=== PATIENT | male | born 1960 | race American Indian/Alaskan Native ===

== ENCOUNTER 2021-12-06 07:53 | Day surgery (SDC) | payer MEDICARE ==
[2021-12-06] MEDS ORDERED: HEPARIN/NS 5000 UNIT/500ML 1,000 ML IR ONE (08:22)
[2021-12-06] MEDS ORDERED: NITROGLYCERIN DRIP 50 MG/250 ML BOTTLE ONE (08:23)
[2021-12-06] MEDS: HEPARIN 10,000 UNITS/10 ML VIAL ONE ×2 (08:23→11:48)
[2021-12-06] MEDS: ceFAZolin/Water 2 GM/20 ML 2 GM/20 ML SYRINGE IV ONE ×2 (08:24→11:30)
[2021-12-06] MEDS: LIDOCAINE 2%/EPINEPHRINE 1:200,000 VIAL (20 ML) INFILTRATI ONE ×2 (08:24→11:37)
[2021-12-06 08:44] LABS: Basophils # (Auto) 0.1 K/mm3 (0.0-0.1); Basophils % (Auto) 1.1 % (0.0-1.8); Eosinophils # (Auto) 0.1 K/mm3 (0.0-0.4); Eosinophils % (Auto) 0.5 % (0.0-4.3); Hematocrit 25.4 % (35.5-45.6); Hemoglobin 8.3 gm/dl (11.8-15.2); Lymphocytes # (Auto) 2.9 K/mm3 (1.2-5.4); Lymphocytes % (Auto) 21.7 % (13.4-35.0); Mean Corpuscular HGB Conc 33 % (32-34); Mean Corpuscular Volume 82 fl (84-94); Monocytes # (Auto) 0.7 K/mm3 (0.0-0.8); Monocytes % (Auto) 5.2 % (0.0-7.3); Platelet Count 307 K/mm3 (140-440); Red Blood Count 3.08 M/mm3 (3.65-5.03); Red Cell Distribution Width 18.9 % (13.2-15.2)
[2021-12-06 08:53] LABS: INR 1.1 (0.87-1.13)
[2021-12-06 08:54] LABS: Partial Thromboplastin Time 32.7 Sec. (24.2-36.6)
[2021-12-06 09:07] LABS: Blood Urea Nitrogen 7 mg/dL (9-20); Calcium 8.7 mg/dL (8.4-10.2); Hemolysis Index 16
[2021-12-06 09:09] LABS: BUN/Creatinine Ratio 35
[2021-12-06] MEDS: SODIUM CHLORIDE 0.9% 500 ML 500 ML IV SCH ×2 (09:51→11:30)
[2021-12-06] MEDS ORDERED: MIDAZOLAM 2 MG/2 ML INJ ONE (11:26)
[2021-12-06] MEDS ORDERED: fentaNYL 100 MCG/2 ML INJ ONE (11:26)
--- NOTE | 2021-12-06 11:28 | Short Stay Summary ---
Short Stay Documentation Date of service: 12/06/21 Narrative H&P: 61-year-old male with stroke and multiple medical issues with contracture and chronic wound of the right lower extremity presents with critical limb ischemia of the right lower extremity. Patient had diagnostic noninvasive imaging performed previously which demonstrated severe right SFA stenosis. Risk, benefits, and alternatives discussed with family. Family and patient agree with revascularization. Alternatively, the other option would be amputation which the patient and family have declined. - History Principal diagnosis: Peripheral vascular disease with ulceration of the right lower extremity H&P: obtained from office - Allergies and Medications Current Medications: Allergies acetaminophen [From Percocet] Allergy (Verified 12/06/21 09:43) Unknown confusion oxycodone [From Percocet] Allergy (Verified 12/06/21 09:43) Unknown confusion Home Medications Medication Instructions Recorded Confirmed Last Taken Type Acetaminophen [Tylenol] 650 mg PO Q6HR PRN 12/06/21 12/06/21 12/05/21 History AtorvaSTATin [Lipitor] 20 mg PO QHS 12/06/21 12/06/21 12/05/21 History Baclofen 1 tab PO BID PRN 12/06/21 12/06/21 12/05/21 History Clopidogrel [Plavix] 75 mg PO QDAY 12/06/21 12/06/21 12/05/21 History Fluticasone [Flonase] 1 spray NS QDAY 12/06/21 12/06/21 12/05/21 History Folic Acid [Folvite] 1 mg PO QDAY 12/06/21 12/06/21 12/05/21 History HYDROcodone/APAP 7.5-325 [[place] 1 each PO Q8HR PRN 12/06/21 12/06/21 12/05/21 History 7.5/325] Insulin Aspart (Nf) [NovoLOG 0 units SQ AC 12/06/21 12/06/21 12/05/21 History Flexpen] Loratadine [Claritin] 10 mg PO DAILY 12/06/21 12/06/21 12/05/21 History Magnesium Oxide [Magnesium] 400 mg PO DAILY 12/06/21 12/06/21 12/05/21 History Metoprolol [Lopressor TAB] 50 mg PO BID 12/06/21 12/06/21 12/05/21 History Pantoprazole [Protonix] 40 mg PO QDAY 12/06/21 12/06/21 12/05/21 History cilostazoL [Pletal] 100 mg PO BID 12/06/21 12/06/21 12/05/21 History lisinopriL [Lisinopril] 10 mg PO DAILY 12/06/21 12/06/21 12/05/21 History megestroL [Megace] 400 mg PO BID 12/06/21 12/06/21 12/05/21 History Active Medications Sodium Chloride (Nacl 0.9% 500 Ml) 500 mls @ 50 mls/hr IV DIRECT MINISTERIO Last Admin: 12/06/21 09:51 Dose: 50 mls/hr - Physical exam General appearance: other (Nonverbal, contracted, no distress) Lungs: Normal air movement Gastrointestinal: normal Extremities: normal temperature, normal color, abnormal (Multiple dressings on the right foot for nonhealing wounds, nonpalpable pedal pulses) - Brief post op/procedure progress note Date of procedure: 12/06/21 Pre-op diagnosis: Atherosclerosis with ulceration of the right lower extremity Post-op diagnosis: same Procedure: 1. Ultrasound-guided access of the left common femoral artery. 2. Angiography of the left lower extremity. 3. Selection of the abdominal aorta with angiography. 4. Selection of the right external iliac artery, superficial femoral artery, and popliteal artery of the right lower extremity with angiography. 5. Fluoroscopic guided placement of a 6 mm spider embolic protection device in the right popliteal artery. 6. Atherectomy of the right distal superficial femoral artery with a Hawkone M device with angioplasty with a 5 mm x 150 mm iNPACT balloon 7. Fluoroscopic guided removal of the embolic protection device. 8. Closure of the left common femoral artery with 6 [place] Pro style Anesthesia: local Surgeon: AMARA WING Estimated blood loss: minimal Condition: stable - Hospital course Hospital course: Patient tolerated the procedure well. No immediate postprocedural complications. Kept for 2 hours without issue. Pressure dressing on left groin. Can remove pressure dressing tomorrow morning. Reloaded with Plavix. Continue Plavix and cilostazol twice daily. Try to prevent dehydration as much as possible. IV fluid provided. - Disposition Condition at discharge: Stable Disposition: 01 HOME / SELF CARE / HOMELESS Short Stay Discharge Plan Activity: advance as tolerated Weight Bearing Status: Weight Bear as Tolerated (Do not lift more than 10 pounds for 1 week) Diet: per dietitian instruction Wound: keep clean and dry (Remove pressure dressing tomorrow morning. Can remove clear Tegaderm dressing in 48 hours and replace daily with new Tegaderm dressing until healed. ) Follow up with: Je PHILLIP MD [Primary Care Provider] - 7 Days Prescriptions: DOXYCYCLINE Hyclate [Vibramycin CAP] 100 mg PO BID #20 capsule
[2021-12-06] MEDS ORDERED: SODIUM CHLORIDE 0.9% 500 ML 500 ML ONE (12:16)
[2021-12-06] MEDS ORDERED: CLOPIDOGREL 300 MG TAB ONE (12:24)
--- NOTE | 2021-12-06 13:55 | Short Stay Summary ---
Short Stay Documentation Date of service: 12/06/21 Narrative H&P: 61-year-old male with stroke and multiple medical issues with contracture and chronic wound of the right lower extremity presents with critical limb ischemia of the right lower extremity. Patient had diagnostic noninvasive imaging performed previously which demonstrated severe right SFA stenosis. Risk, benefits, and alternatives discussed with family. Family and patient agree with revascularization. Alternatively, the other option would be amputation which the patient and family have declined. - History Principal diagnosis: Peripheral vascular disease with ulceration of the right lower extremity H&P: obtained from office - Allergies and Medications Current Medications: Allergies acetaminophen [From Percocet] Allergy (Verified 12/06/21 09:43) Unknown confusion oxycodone [From Percocet] Allergy (Verified 12/06/21 09:43) Unknown confusion Home Medications Medication Instructions Recorded Confirmed Last Taken Type Acetaminophen [Tylenol] 650 mg PO Q6HR PRN 12/06/21 12/06/21 12/05/21 History AtorvaSTATin [Lipitor] 20 mg PO QHS 12/06/21 12/06/21 12/05/21 History Baclofen 1 tab PO BID PRN 12/06/21 12/06/21 12/05/21 History Clopidogrel [Plavix] 75 mg PO QDAY 12/06/21 12/06/21 12/05/21 History DOXYCYCLINE Hyclate [Vibramycin 100 mg PO BID #20 capsule 12/06/21 Unknown Rx CAP] Fluticasone [Flonase] 1 spray NS QDAY 12/06/21 12/06/21 12/05/21 History Folic Acid [Folvite] 1 mg PO QDAY 12/06/21 12/06/21 12/05/21 History HYDROcodone/APAP 7.5-325 [[place] 1 each PO Q8HR PRN 12/06/21 12/06/21 12/05/21 History 7.5/325] Insulin Aspart (Nf) [NovoLOG 0 units SQ AC 12/06/21 12/06/21 12/05/21 History Flexpen] Loratadine [Claritin] 10 mg PO DAILY 12/06/21 12/06/21 12/05/21 History Magnesium Oxide [Magnesium] 400 mg PO DAILY 12/06/21 12/06/21 12/05/21 History Metoprolol [Lopressor TAB] 50 mg PO BID 12/06/21 12/06/21 12/05/21 History Pantoprazole [Protonix] 40 mg PO QDAY 12/06/21 12/06/21 12/05/21 History cilostazoL [Pletal] 100 mg PO BID 12/06/21 12/06/21 12/05/21 History lisinopriL [Lisinopril] 10 mg PO DAILY 12/06/21 12/06/21 12/05/21 History megestroL [Megace] 400 mg PO BID 12/06/21 12/06/21 12/05/21 History Active Medications Sodium Chloride (Nacl 0.9% 500 Ml) 500 mls @ 50 mls/hr IV DIRECT MINISTERIO Last Admin: 12/06/21 11:30 Dose: 50 mls/hr - Physical exam General appearance: other (Nonverbal, contracted, no distress) Lungs: Normal air movement Heart: Regular rate Gastrointestinal: normal Extremities: normal temperature, normal color, abnormal (Multiple dressings on the right foot for nonhealing wounds, nonpalpable pedal pulses) - Brief post op/procedure progress note Date of procedure: 12/06/21 Pre-op diagnosis: Atherosclerosis with ulceration of the right lower extremity Post-op diagnosis: same Procedure: 1. Ultrasound-guided access of the left common femoral artery. 2. Angiography of the left lower extremity. 3. Selection of the abdominal aorta with angiography. 4. Selection of the right external iliac artery, superficial femoral artery, and popliteal artery of the right lower extremity with angiography. 5. Fluoroscopic guided placement of a 6 mm spider embolic protection device in the right popliteal artery. 6. Atherectomy of the right distal superficial femoral artery with a [place]one M device with angioplasty with a 5 mm x 150 mm iNPACT balloon 7. Fluoroscopic guided removal of the embolic protection device. 8. Closure of the left common femoral artery with 6 [place] Pro style Anesthesia: local Surgeon: AMARA WING Estimated blood loss: minimal Condition: stable - Hospital course Hospital course: Patient tolerated the procedure well. No immediate postprocedural c omplications. Kept for 2 hours without issue. Pressure dressing on left groin. Can remove pressure dressing tomorrow morning. Reloaded with Plavix. Continue Plavix and cilostazol twice daily. Try to prevent dehydration as much as possible. IV fluid provided. - Disposition Condition at discharge: Stable Disposition: HOME / SELF CARE / HOMELESS - Discharge Diagnoses (1) Stroke Status: Acute (2) Bilateral knee contractures Status: Acute (3) Contracture of joint of both hips Status: Acute (4) Atherosclerosis of right lower extremity with ulceration Status: Acute Short Stay Discharge Plan Activity: advance as tolerated Weight Bearing Status: Weight Bear as Tolerated (Do not lift more than 10 pounds for 1 week) Diet: per dietitian instruction Wound: keep clean and dry (Remove pressure dressing tomorrow morning. Can remove clear Tegaderm dressing in 48 hours and replace daily with new Tegaderm dressing until healed.) Additional Instructions: Take doxycycline for 10 days. Recommend probiotics per facility with antibiotics. Follow up with: Je PHILLIP MD [Primary Care Provider] - 7 Days Forms: Post Arteriogram Instruct Prescriptions: DOXYCYCLINE Hyclate [Vibramycin CAP] 100 mg PO BID #20 capsule
--- NOTE | 2021-12-06 14:06 | Operative Report ---
Operative Report Operative Report: EXAM: 1. Ultrasound-guided access of the left common femoral artery. 2. Angiography of the left lower extremity. 3. Selection of the abdominal aorta with angiography. 4. Selection of the right external iliac artery, superficial femoral artery, and popliteal artery of the right lower extremity with angiography. 5. Fluoroscopic guided placement of a 6 mm spider embolic protection device in the right popliteal artery. 6. Atherectomy of the right distal superficial femoral artery with a Hawkone M device with angioplasty with a 5 mm x 150 mm iNPACT balloon 7. Fluoroscopic guided removal of the embolic protection device. 8. Closure of the left common femoral artery with 6 [place] Pro style DATE: 12/06/2021 MILK TESTER: AMARA WING MD INDICATION: Peripheral vascular disease with atherosclerosis of the right lower extremity with nonhealing ulceration with limb threatening wounds for long duration. Given contractures, discussed with family options of endovascular revascularization versus amputation. Family elected for endovascular revascularization. Risk, benefits, and alternatives discussed. Family and patient wish for endovascular revascularization. MEDICATIONS: Please see nursing report for full details. DEVICES: 6 mm spider embolic protection device, Hawkone M device 5 mm x 150 mm iNPACT balloon CONTRAST: Please see cath report for full details. PROCEDURE: The risks, benefits, and alternatives were discussed with the patient; written informed consent was obtained. The patient was prepped and draped in a sterile fashion and both groins were prepped and draped in a sterile fashion. The left common femoral artery was assessed by ultrasound and determined to be patent. The area was anesthetized. A 21-gauge micropuncture needle was used to access the left common femoral artery under direct ultrasound guidance. 0.018 inch wire was passed into the artery. The needle was exchanged for a transitional dilator. Inner dilator and wire were removed. 0.035 inch wire was passed centrally into the aorta. The transitional dilator was exchanged for a 5 [place] sheath. Digital subtraction angiography was performed through the sheath demonstrating an appropriate puncture, above the bifurcation and below the inferior epigastric artery. The left external iliac artery, common femoral artery, proximal superficial femoral artery and profunda femoral artery are patent. Omni flush catheter was advanced over the wire to select the abdominal aorta. Digital subtraction angiography was performed demonstrating the infrarenal abdominal aorta, bilateral common iliac arteries, external iliac arteries, and internal iliac arteries are patent.. Catheter was used to select the right external iliac artery and superficial femoral artery and digital subtraction angiography was performed. The right common femoral artery, and profunda femoral artery were patent. The right superficial femoral artery demonstrates 20% ostial stenosis. Right mid superficial femoral artery is patent. The right distal superficial femoral artery demonstrates a intermittent 30 to 60% stenosis with a focal 99% stenosis at Jarrett's canal. The popliteal artery is patent. The dominant flow to the foot through the posterior tibial artery which is patent. The medial and lateral plantar arteries are dominant. The tibioperoneal trunk is patent. Anterior tibial artery is patent but small. The dorsalis pedis has a proximal occlusion with collaterals around this area through the tarsal vessels. The medial and lateral plantar arteries are patent. Calcaneal branches arise from the posterior tibial artery feeding the heel. The peroneal artery is small but patent to the level of the distal ankle, but it becomes quite atretic at that location. After evaluating the diagnostic angiogram, I decided the patient required an intervention. The patient was heparinized, and the sheath was exchanged for 6 [place] 45 cm [place] destination positioned in the right proximal to mid superficial femoral artery. Wire and catheter were then used to cross the focal 99% stenosis and catheter was positioned in the popliteal artery and digital subtraction angiography was performed demonstrating intraluminal crossing. 6 mm spider embolic protection device was then deployed in the right popliteal artery. Atherectomy was then performed of the right distal superficial femoral artery until there was less than 30% stenosis. At this point, 5 mm x 150 mm iNPACT balloon was used to perform angioplasty of the right distal superficial femoral artery. Digital subtraction angiography was performed demonstrating no residual narrowing of the right distal superficial femoral artery. There is a very small amount of debris in the embolic protection device which was then retrieved. Hub was removed and flushed and then reattached. All wires, catheters, and sheaths were retracted to the left external iliac artery and the site was then closed with a 6 [place] Pro style achieving immediate hemostasis. The patient tolerated the procedure well. No immediate postprocedural complications. FINDINGS: Please see procedure note above IMPRESSION: Successful atherectomy and angioplasty of the right superficial femoral artery.
[2021-12-06] MEDS ORDERED: HYDROcodone/ACETAMINOPHEN 5-325 MG TAB PO ONE (14:18)
[2021-12-06 14:36] VITALS: BP 106/65
== END 2021-12-06 14:48 | disposition home or self-care (01) ==
LOC: CATHLABREC 07:53
PROVIDERS: ATTEND Radiology Diagnostic Radiology
DX: I70.235 Atherosclerosis of native arteries of right leg with ulceration of other part of foot (principal); E78.00 Pure hypercholesterolemia, unspecified; I48.91 Unspecified atrial fibrillation; I10 Essential (primary) hypertension; M24.561 Contracture, right knee; M24.551 Contracture, right hip; Z83.3 Family history of diabetes mellitus; Z82.5 Family history of asthma and other chronic lower respiratory diseases; Z98.890 Other specified postprocedural states; Z88.8 Allergy status to other drugs, medicaments and biological substances; Z79.899 Other long term (current) drug therapy; Z87.891 Personal history of nicotine dependence; Z86.73 Personal history of transient ischemic attack (TIA), and cerebral infarction without residual deficits
CPT/HCPCS: 36415; 37225; 75625; 75710; 76937; 80048; 82962; 85025; 85610; 85730; C1714; C1760; C1769; C1884; C1887; C2623; J0690; J1644; J3490; J7040; J2250; J3010; Q9967